=== PATIENT | male | born 2005 | race Caucasian/White ===

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

== ENCOUNTER → 2025-01-07 09:16 | Outpatient (BNVA) | payer BC, SELFPAY | PROVIDERS: PCP Family Medicine; Visit Provider Nurse Practitioner | DX: E16.2 Hypoglycemia, unspecified (principal) | CPT/HCPCS: 80053; 83036; 84443 ==